=== PATIENT | female | born 1995 | race Caucasian/White ===

== ENCOUNTER 2017-02-15 10:31 | Emergency (ER) | payer BC, OTHER ==
[2017-02-15 12:42] LABS: HEMOGLOBIN 13.3 gm/dl (12.3-15.3); RED BLOOD COUNT 4.65 M/UL (4.00-5.10); WHITE BLOOD COUNT 10.1 K/UL (4.5-11.0)
[2017-02-15 13:02] LABS: BUN/CREATININE RATIO 14 (0-10)
== END 2017-02-15 15:20 | disposition home or self-care (01) ==
LOC: ER1 10:31
PROVIDERS: Student in an Organized Health Care Education/Training Program
DX: S46.911A Strain of unspecified muscle, fascia and tendon at shoulder and upper arm level, right arm, initial encounter (principal); N39.0 Urinary tract infection, site not specified; Z88.0 Allergy status to penicillin; V49.40XA Driver injured in collision with unspecified motor vehicles in traffic accident, initial encounter; Y93.89 Activity, other specified; Y92.410 Unspecified street and highway as the place of occurrence of the external cause
CPT/HCPCS: 36415; 71010; 73030; 80053; 81001; 82550; 82553; 83690; 83874; 84484; 84703; 85025; 87086; 93005; 99285; J7050; Q9962